=== PATIENT | female | born 1950 | race Caucasian/White ===

== ENCOUNTER 2021-04-17 08:09 | Emergency (ER) | payer BC, MEDICARE ==
[~2021-04-17] VITALS: Ht 167.6 cm; Wt 74.8 kg
[2021-04-17] MEDS ORDERED: PERCOCET 5-3251 EACH PO (08:21)
[2021-04-17] MEDS ORDERED: PERCOCET 10-321 EAC1 PO (08:21)
[2021-04-17] MEDS ORDERED: TRIGLIDE160 MG PO (08:22)
[2021-04-17] MEDS ORDERED: AMLODIPINE-BEN1 EAC4 PO (08:22)
[2021-04-17] MEDS ORDERED: BUPROPION XL300 MG PO (08:23)
[2021-04-17] MEDS ORDERED: SIMVASTATIN40 MG PO (08:23)
[2021-04-17] MEDS ORDERED: PROAIR HFA8.5 GM INH (08:23)
[2021-04-17] MEDS ORDERED: FLONASE 0.05%50 MCG NASAL (08:24)
[2021-04-17] MEDS ORDERED: OMEPRAZOLE40 MG PO (08:24)
[2021-04-17] MEDS ORDERED: XANAX1 MG PO (08:24)
[2021-04-17 10:05] VITALS: BP 168/58
== END 2021-04-17 10:06 | disposition home or self-care (01) ==
LOC: M.ERS 08:09
DX: S63.92XA Sprain of unspecified part of left wrist and hand, initial encounter (principal); S13.9XXA Sprain of joints and ligaments of unspecified parts of neck, initial encounter; S00.12XA Contusion of left eyelid and periocular area, initial encounter; I10 Essential (primary) hypertension; K21.9 Gastro-esophageal reflux disease without esophagitis; Z79.51 Long term (current) use of inhaled steroids; Z79.899 Other long term (current) drug therapy; Z88.0 Allergy status to penicillin; X58.XXXA Exposure to other specified factors, initial encounter; Y93.89 Activity, other specified; Y92.89 Other specified places as the place of occurrence of the external cause; Y99.8 Other external cause status